=== PATIENT | female | born 1995 | race Caucasian/White ===

== ENCOUNTER 2017-04-17 16:29 | Emergency (ER) | payer OTHER ==
--- NOTE | 2017-04-17 18:22 | DIAGNOSTIC IMAGING REPORT ---
PROCEDURE: CT ABD/PELVIS WITH CONTRAST CLINICAL INDICATION: ABDOMINAL PAIN TECHNIQUE: 100 ml of Isovue 300 were injected intravenously and axial images were obtained of the entire abdomen and pelvis with sagittal and coronal reformations. COMPARISON: Pelvic ultrasound 04/12/[address] of/pelvis 03/10/2016. FINDINGS: ABDOMEN: Lung base are clear. Heart size is normal. Liver, gallbladder, pancreas, spleen, adrenal glands, kidneys and abdominal aorta are normal. Stool throughout the large bowel. PELVIS: Appendix not clearly visualized but no evidence of acute appendicitis. Uterus, adnexa and bladder are normal. No evidence of a pelvic mass, inflammatory changes or free fluid. Bones are unremarkable. IMPRESSION: 1. Obstipation 2. Results discussed with Aleyda Milner. All CT scans at this facility use dose modulation, iterative reconstruction, and/or weight-based dosing when appropriate to reduce radiation dose to as low as reasonably achievable.
--- NOTE | 2017-04-17 18:48 | ED ORDER SUMMARY ---
..... Patient: WILD DE LEON OrderSheet [facility] VisitID: [id number] [place] [address] 22y, F Registration Date/Time: 04/17/2017 ORDER SHEET Weight: 45.3 kg (stated) Allergies: No Known Drug Allergy GENERAL ORDERS: UA-Culture if indicated Urgent (16:42 04/17/2017 JBoardley R.N. per protocol) (Ack 16:46 PWeiler ER Tech1) (16:47 JBoardley R.N.) Urine Urgent (16:42 04/17/2017 JBoardley R.N. per protocol) (Ack 16:46 PWeiler ER Tech1) (16:47 JBoardley R.N.) CT Abd/Pel w Cont (No) (pending) Urgent (17:03 04/17/2017 HBivens A.R.N.P.) (Ack 17:14 PWeiler ER Tech1) (18:04 PWeiler ER Tech1) CBC w Diff Urgent (17:03 04/17/2017 HBivens A.R.N.P.) (17:11 JBoardley R.N.) CMP Urgent (17:03 04/17/2017 HBivens A.R.N.P.) (17:11 JBoardley R.N.) MEDICATION ORDERS: IV FLUIDS: Toradol IV 30 mg (NOW) (17:02 04/17/2017 HBivens A.R.N.P.) (Ack 17:05 JBoardley R.N.) (17:12 JBoardley R.N.) IV Saline Lock (17:03 04/17/2017 HBivens A.R.N.P.) (Ack 17:05 JBoardley R.N.) (17:12 JBoardley R.N.) Dilaudid IV 1 mg (HIGH ALERT MEDICATION, NOW) (17:33 04/17/2017 JBoardley R.N. verbal order read back to HBivens A.R.N.P.) (17:34 JBoardley R.N.) Zofran IV 4 mg (NOW) (17:33 04/17/2017 Saundra R.N. verbal order read back to HBivens A.R.N.P.) (17:34 Saundra R.N.) Dilaudid IV 0.5 mg (HIGH ALERT MEDICATION, NOW) (17:48 04/17/2017 Saundra R.N. verbal order read back to HBivens A.R.N.P.) (Cancelled: Other17:48 Saundra R.N.) ORDER SHEET NOTES: [Electronically signed by Gemini Dodge R.N. (19:01 04/17/2017)] [Electronically signed by Aleyda MilnerNSabrinaPSabrina (22:23 04/17/2017)] [Electronically locked/signed by Gemini Dodge R.N. (19:01 04/17/2017)]
--- NOTE | 2017-04-17 18:48 | ED CLINICAL REPORT ---
Clinical Report - Physicians/Mid Levels [facility] [address] [place] [address] 04/17/2017 16:29 Patient: WILD DE LEON Time Seen: 16:33; initial patient contact, initial documentation, patient care assumed. Arrived- By private vehicle. Historian- patient. HISTORY OF PRESENT ILLNESS Chief Complaint: PELVIC PAIN. This started about 4 days ago and is still present and worsening. It was abrupt in onset and has been constant. At its maximum, severity described as severe. When seen in the E.D., severity described as severe. Modifying factors. Not worsened by anything. Not relieved by anything. It is described as "pain". No radiation. It is described as located in the right pelvis and left pelvis and in the pelvic area. No nausea, loss of appetite, vomiting or diarrhea. No additional abdominal pain. No recent travel. Similar symptoms previously: None. Recent medical care: The patient was seen recently in a clinic. ( went to clinic yesterday, full exam done, dx with pelvic infection, given shot and oral abx & pain meds, pt here today, because pain is worse, doesn't know name of meds, name of infection). REVIEW OF SYSTEMS No constipation, black stools, hematemesis, difficulty with urination or pain with urination. No urinary frequency, abnormal bleeding, fever, chest pain or difficulty breathing. Denies current . The patient has chronically had irregular periods. All systems otherwise negative, except as recorded above. PAST HISTORY See nurses notes. PROBLEMS: Pelvic Pain. Flank Pain. Abdominal Pain. Ovarian Cyst. Immunizations. LNMP - Last Normal Menstrual Period. --16:38 Matheus Cunha R.N. Gastroenteritis [RuleOut]. --16:38 Matheus Cunha R.N. ADDITIONAL SURGERIES: no known surgeries. SOCIAL HISTORY Light tobacco smoker. Occasional alcohol use. History of occasional drug use: marijuana. No recent travel. Is a local resident. FAMILY HISTORY Negative. ADDITIONAL NOTES The nursing notes have been reviewed with agreement regarding the chief complaint, HPI, ROS, PMH and patient medications and allergies. PHYSICAL EXAM Vital Signs: 04/17/2017 16:34 BP: 116/74. HR: 109. RR: 16. O2 saturation: 100%. Temp: 98.1 F. Pain level now: 06/21. Have been reviewed as abnormal and appear to be correct. Blood pressure normal. Tachycardic. Respiratory rate normal. Temperature normal. Oxygen saturation normal. Appearance: Alert. Oriented X3. No acute distress. Eyes: Pupils equal, round and reactive to light. Eyes normal inspection. Neck: Normal inspection. Neck supple. CVS: Normal heart rate and rhythm. Heart sounds normal. Pulses normal. Respiratory: No respiratory distress. Breath sounds normal. Chest nontender. Abdomen: Soft. Tenderness in the right lower quadrant, suprapubic area and left lower quadrant with guarding and rebound tenderness present (moderate tenderness on RLQ with guarding and rebound, mild tenderness suprapubic and LLQ). No Donaldson's, obturator or psoas sign present. Bowel sounds normal. No organomegaly. No mass. Tenderness present. Back: Normal inspection. Skin: Skin warm and dry. Normal skin color. No rash. Normal skin turgor. Extremities: Extremities exhibit normal ROM. No lower extremity edema. Neuro: Oriented X 3. No motor deficit. No sensory deficit. LABS, X-RAYS, AND EKG Abdominal CT: . IMPRESSION: 1. Obstipation 2. Results discussed with Aleyda Milner. All CT scans at this facility use dose modulation, iterative reconstruction, and/or weight-based dosing when appropriate to reduce radiation dose to as low as reasonably achievable. Electronically Final signed by:Saturnino Adair MD 04/17/2017 6:21:42 PM. The study was interpreted by the radiologist and discussed with the radiologist. Interpretation time: 1821. Laboratory Tests: UA-Culture if indicated: (JUAN M: 04/17/2017 16:45) ( MsgRcvd 04/17/2017 17:13) Final results Test Result Flag Units (Reference) URINE COLOR YELLOW URINE APPEARANCE SL CLOUDY URINE GLUCOSE NEGATIVE (NEGATIVE) URINE BILIRUBIN NEGATIVE (NEGATIVE) URINE KETONE NEGATIVE (NEGATIVE) URINE SPECIFIC GRAVITY 1.020 (1.010-1.030) URINE PH 7.0 (5.0-8.0) URINE PROTEIN NEGATIVE (NEGATIVE) URINE UROBILINOGEN 1.0 EU/dL (0.2-1.0) URINE NITRITE NEGATIVE (NEGATIVE) URINE BLOOD NEGATIVE (NEGATIVE) URINE LEUK ESTERASE NEGATIVE (NEGATIVE) URINE RBC 0-1 rbc/hpf (0-1) URINE WBC NONE SEEN wbc/hpf (0-1) URINE EPITHELIAL CELLS 3-5 EPI/hpf (0-5) 3+ AMORPHOUS/HPF1+ MUCUS URINE BACTERIA TRACE (<1+) (NONE SEEN) URINE COMMENT CULT NOT INDICATED URINE CULTURES ARE SET-UP BASED ON THE FOLLOWING CRITERIA:POSITIVE NITRITEPOSITIVE LEUKOCYTE ESTERASEGREATER THAN 10 WHITE BLOOD CELLSMODERATE (2+) OR GREATER BACTERIA Urine: (JUAN M: 04/17/2017 16:45) ( [facility] 04/17/2017 17:11) Final results Test Result Flag Units (Reference) URINE NEGATIVE CBC w Diff: (JUAN M: 04/17/2017 17:10) ( [facility] 04/17/2017 17:22) Final results Test Result Flag Units (Reference) WHITE BLOOD COUNT 7.2 K/uL (4.5-11.5) RED BLOOD COUNT 4.39 M/uL (4.00-5.20) HEMOGLOBIN 13.3 gm/dL (12.0-16.0) HEMATOCRIT 39.5 % (36.0-46.0) MEAN CELL VOLUME 90 fL (80-100) MEAN CORPUSCULAR HGB 30 pg (26-34) MEAN CORPUSCULAR HGB CONC 34 g/dL (31-37) RED CELL DISTRIBUTION WIDTH 12.8 % (11.6-14.8) PLATELET COUNT 259 K/uL (150-400) NEUTROPHIL % 57.8 % (50-75) LYMPH % 32.4 % (25-40) MONO % 8.2 % (3-14) EOSINOPHIL % 1.3 % (0-4) BASOPHIL % 0.3 % (0-2) . PROGRESS AND PROCEDURES Course of Care: old er records reviewed, pt here 04/12/16, for same thing, even though pt stated she never had this before. Patient counseled in person regarding the patient's stable condition, test results and diagnosis. 18:26. Differential Diagnosis: I considered acute appendicitis, mesenteric lymphadenitis, urinary tract infection, cystitis, ovarian cyst, ovarian torsion, , ectopic , pelvic inflammatory disease, pelvic abscess and endometriosis as a possible cause of abdominal pain in this patient. This is a partial list of diagnoses considered. (substance abuse). Above considerations are based on history, physical exam, reassessment, laboratory data and other information. Differential diagnosis was discussed with patient. Disposition: Discharged home in good and improved condition (18:47). Condition: good and stable. CLINICAL IMPRESSION Acute right lower quadrant abdominal pain. INSTRUCTIONS (continue prescription, antibiotics and pain meds, as previously directed, and discussed). Warnings: GENERAL WARNINGS: Return or contact your physician immediately if your condition worsens or changes unexpectedly, if not improving as expected, or if other problems arise. SPECIFICALLY, return if you develop pain in the abdomen or pelvis, fever, the inability to keep fluids down, blood in vomitus, blood in diarrhea, fainting or lightheadedness. Prescription Medications: Miralax: take 1 measuring cupful supplied (1 heaping tablespoon) mixed in 8 ounces liquid daily as needed for constipation. Dispense fourteen (14) ounce bottle. No refill. Substitution is permissible. Follow-up: Follow up with your doctor in about two days even if well. Call for an appointment. Summary of care provided to patient. Understanding of the discharge instructions verbalized by patient. (Electronically signed by Aleyda Milner A.R.N.P. 04/17/2017 22:23)
--- NOTE | 2017-04-17 18:48 | ED ORDER SUMMARY ---
..... Patient: WILD DE LEON OrderSheet [facility] VisitID: [id number] [place] [address] 22y, F Registration Date/Time: 04/17/2017 ORDER SHEET Weight: 45.3 kg (stated) Allergies: No Known Drug Allergy GENERAL ORDERS: UA-Culture if indicated Urgent (16:42 04/17/2017 JBoardley R.N. per protocol) (Ack 16:46 PWeiler ER Tech1) (16:47 JBoardley R.N.) Urine Urgent (16:42 04/17/2017 JBoardley R.N. per protocol) (Ack 16:46 PWeiler ER Tech1) (16:47 JBoardley R.N.) CT Abd/Pel w Cont (No) (pending) Urgent (17:03 04/17/2017 HBivens A.R.N.P.) (Ack 17:14 PWeiler ER Tech1) (18:04 PWeiler ER Tech1) CBC w Diff Urgent (17:03 04/17/2017 HBivens A.R.N.P.) (17:11 JBoardley R.N.) CMP Urgent (17:03 04/17/2017 HBivens A.R.N.P.) (17:11 JBoardley R.N.) MEDICATION ORDERS: IV FLUIDS: Toradol IV 30 mg (NOW) (17:02 04/17/2017 HBivens A.R.N.P.) (Ack 17:05 JBoardley R.N.) (17:12 JBoardley R.N.) IV Saline Lock (17:03 04/17/2017 HBivens A.R.N.P.) (Ack 17:05 JBoardley R.N.) (17:12 JBoardley R.N.) Dilaudid IV 1 mg (HIGH ALERT MEDICATION, NOW) (17:33 04/17/2017 JBoardley R.N. verbal order read back to HBivens A.R.N.P.) (17:34 JBoardley R.N.) Zofran IV 4 mg (NOW) (17:33 04/17/2017 Saundra R.N. verbal order read back to HBivens A.R.N.P.) (17:34 Saundra R.N.) Dilaudid IV 0.5 mg (HIGH ALERT MEDICATION, NOW) (17:48 04/17/2017 Saundra R.N. verbal order read back to HBivens A.R.N.P.) (Cancelled: Other17:48 Saundra R.N.) ORDER SHEET NOTES: [Electronically signed by Gemini Dodge R.N. (19:01 04/17/2017)] [Electronically signed by Aleyda MilnerNSabrinaPSabrina (22:23 04/17/2017)] [Electronically locked/signed by Gemini Dodge R.N. (19:01 04/17/2017)]
--- NOTE | 2017-04-17 18:48 | ED NURSING NOTES ---
Clinical Report - Nurses [place] [address] [place] [address] 04/17/2017 16:29 Patient: WILD DE LEON TRIAGE Triage time 16:34. Acuity: LEVEL 3. Chief Complaint: PELVIC PAIN. 16:36 04/17/17. 16:36 04/17/17. Alert. ( Pt was seen yesterday at Jan. Pt states that she had a pelvic exam and had a "pelvic infection". Pt was given an IM injection and PO abx. Pt is returning because this pelvic pain is worse.). SEPSIS SCREEN: Sepsis Screen. Negative (no infection suspected/documented). --16:40 Matheus Cunha R.N. 16:34 04/17/17. BP: 116/74. HR: 109. RR: 16. O2 saturation: 100% on room air. Temp: 98.1 F (oral). Pain level now: 06/21. --16:40 Matheus Cunha R.N. Weight: 45.3 kg stated. Height/Length: 64 inches Per Patient. BMI: 17.2. --16:34 Matheus Cunha R.N. Medications Abx, started 04/16/2017 (unsure of med, was recently prescribed this). --16:37 Matheus Cunha R.N. Percocet Oral, as needed, started 04/16/2017. --16:37 Matheus Cunha R.N. Medication/allergy information source: the patient. --16:40 Matheus Cunha R.N. Allergies No Known Drug Allergy. --16:36 Matheus Cunha R.N. History Arrived by private vehicle. Historian: patient. Unaccompanied. Primary physician (). 16:36 04/17/17. ( 4 days ago). 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 PAST MEDICAL HX: No history of pelvic inflammatory disease or sexually transmitted disease. Immunizations: up-to-date. Last normal menstrual period unknown. SOCIAL HX: Current every day light tobacco smoker (cigarette)- less than 1/2 a pack per day. Occasional alcohol use. History of occasional drug use: marijuana. No infectious disease exposure. FALL RISK ASSESSMENT: Fall risk assessment completed. No fall risk identified. NUTRITIONAL RISK ASSESSMENT: The nutritional risk assessment revealed no deficiencies. FUNCTIONAL ASSESSMENT: Functional assessment: no impairments noted. LEARNING NEEDS ASSESSMENT: The learning needs assessment revealed no barriers. SKIN INTEGRITY ASSESSMENT: Skin integrity risk assessment completed. No skin integrity risk identified. --16:40 Matheus Cunha R.N. 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 --16:48 Matheus Cunha R.N. PROBLEMS: Pelvic Pain. Flank Pain. Abdominal Pain. Ovarian Cyst. Immunizations. LNMP - Last Normal Menstrual Period. --16:38 Matheus Cunha R.N. Gastroenteritis [RuleOut]. --16:38 Matheus Cunha R.N. ADDITIONAL SURGERIES: no known surgeries. Assessment 16:36 04/17/17. --16:40 Matheus Cunha R.N. Interventions 16:36 04/17/17. 16:36 04/17/17. ID and allergy band on patient. To treatment room. --16:40 Matheus Cunha R.N. PHYSICAL ASSESSMENT 16:38 04/17/17. Ambulatory to room. GENERAL / NEURO / PSYCH: Alert. Oriented X 4. CVS: Capillary refill less than 2 seconds. GI / : Abdominal tenderness in the lower abdomen. SKIN: Skin is warm and dry. --16:38 Matheus Cunha R.N. NURSING PROGRESS NOTES 16:39 04/17/17. The plan of care for this patient has been created. Patient gowned. Head of bed elevated. Reassurance given. Call light placed in reach. Side rails up x 2. Bed placed in lowest position. Brakes of bed on. --16:39 Matheus Cunha R.N. 16:39 04/17/17. Patient ready for evaluation- chart flagged and notification provided. --16:39 Matheus Cunha R.N. 17:12 04/17/2017 Site #1 started via IV in the right antecubital space with an 20g angiocath, with aseptic technique and good blood return; one attempt. Blood drawn: rainbow set. Labeled in the presence of the patient and sent to the lab. Saline lock flushed with 10 mL saline. --17:12 Matheus Cunha R.N. 17:12 04/17/2017 Toradol IVP 30 mg given over 2 minute(s) via site #1. Allergies verified and confirmed 5 rights. IV patency established. IV site checked: no pain, redness, or swelling. IV flushed thoroughly pre- and post-medication administration. IVP given by RN. --17:12 Matheus Cunha R.N. 17:34 04/17/2017 Dilaudid (HYDROmorphone HCl PF) IVP 0.5 mg given over 2 minute(s) via site #1. Allergies verified, confirmed 5 rights and sedative warning given to the patient. IV patency established. IV site checked: no pain, redness, or swelling. IV flushed thoroughly pre- and post-medication administration. IVP given by RN. --17:34 Matheus Cunha R.N. 17:34 04/17/2017 Zofran (Ondansetron HCl) IVP 4 mg given over 2 minute(s) via site #1. Allergies verified and confirmed 5 rights. IV patency established. IV site checked: no pain, redness, or swelling. IV flushed thoroughly pre- and post-medication administration. IVP given by RN. --17:34 Matheus Cunha R.N. 17:48 04/17/2017 Dilaudid (HYDROmorphone HCl PF) IVP 0.5 mg given over 2 minute(s) via site #1. Allergies verified, confirmed 5 rights and sedative warning given to the patient. IV patency established. IV site checked: no pain, redness, or swelling. IV flushed thoroughly pre- and post-medication administration. IVP given by RN. --17:48 Matheus Cunha R.N. 17:49 04/17/17. Pulse oximeter placed on patient; monitor alarms on. --17:49 Matheus Cunha R.N. 17:50 04/17/17. --17:50 Matheus Cunha R.N. 17:49 04/17/17. BP: 111/78. HR: 93. RR: 18. O2 saturation: 99% on room air. Temp: 98.3 F (oral). Pain level now: 07/22. --17:50 Matheus Cunha R.N. 17:54 04/17/17. Patient transported to CT by stretcher with tech. --17:54 Matheus Cunha R.N. 18:04 04/17/17. Patient returned from CT by stretcher with tech. --18:04 Matheus Cunha R.N. DISPOSITION / DISCHARGE 18:33 04/17/2017 Site #1 removed upon discharge. Catheter intact. Bandage applied. --18:33 Matheus Cunha R.N. 18:34 04/17/17. Condition at departure: improved. The goals identified in the patient's plan of care were met. No learning barriers present. Discharge instructions provided and reviewed with the patient. Reviewed warnings. Reviewed medication(s). Treatments reviewed. Patient verbalized understanding. Written instructions provided in Slovak. The patient was discharged by the physician. She was discharged home. She left the Emergency Department ambulatory and via private vehicle. FALL RISK ASSESSMENT: Fall risk assessment completed. No fall risk identified. --18:34 Matheus Cunha R.N. 18:32 04/17/17. BP: 109/77. HR: 89. RR: 18. O2 saturation: 99% on room air. Temp: 98.2 F (oral). Pain level now: 02/19. --18:34 Matheus Cunha R.N. Departure time: 1900 PM. --19:01 Gemini Dodge R.N. Locked/Released at 04/17/2017 19:01 by Gemini Dodge R.N.
--- NOTE | 2017-04-17 18:48 | ED NURSING NOTES ---
Clinical Report - Nurses [place] [address] [place] [address] 04/17/2017 16:29 Patient: WILD DE LEON TRIAGE Triage time 16:34. Acuity: LEVEL 3. Chief Complaint: PELVIC PAIN. 16:36 04/17/17. 16:36 04/17/17. Alert. ( Pt was seen yesterday at Jan. Pt states that she had a pelvic exam and had a "pelvic infection". Pt was given an IM injection and PO abx. Pt is returning because this pelvic pain is worse.). SEPSIS SCREEN: Sepsis Screen. Negative (no infection suspected/documented). --16:40 Matheus Cunha R.N. 16:34 04/17/17. BP: 116/74. HR: 109. RR: 16. O2 saturation: 100% on room air. Temp: 98.1 F (oral). Pain level now: 06/21. --16:40 Matheus Cunha R.N. Weight: 45.3 kg stated. Height/Length: 64 inches Per Patient. BMI: 17.2. --16:34 Matheus Cunha R.N. Medications Abx, started 04/16/2017 (unsure of med, was recently prescribed this). --16:37 Matheus Cunha R.N. Percocet Oral, as needed, started 04/16/2017. --16:37 Matheus Cunah R.N. Medication/allergy information source: the patient. --16:40 Matheus Cunha R.N. Allergies No Known Drug Allergy. --16:36 Matheus Cunha R.N. History Arrived by private vehicle. Historian: patient. Unaccompanied. Primary physician (). 16:36 04/17/17. ( 4 days ago). 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 PAST MEDICAL HX: No history of pelvic inflammatory disease or sexually transmitted disease. Immunizations: up-to-date. Last normal menstrual period unknown. SOCIAL HX: Current every day light tobacco smoker (cigarette)- less than 1/2 a pack per day. Occasional alcohol use. History of occasional drug use: marijuana. No infectious disease exposure. FALL RISK ASSESSMENT: Fall risk assessment completed. No fall risk identified. NUTRITIONAL RISK ASSESSMENT: The nutritional risk assessment revealed no deficiencies. FUNCTIONAL ASSESSMENT: Functional assessment: no impairments noted. LEARNING NEEDS ASSESSMENT: The learning needs assessment revealed no barriers. SKIN INTEGRITY ASSESSMENT: Skin integrity risk assessment completed. No skin integrity risk identified. --16:40 Matheus Cunha R.N. 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 --16:48 Matheus Cunha R.N. PROBLEMS: Pelvic Pain. Flank Pain. Abdominal Pain. Ovarian Cyst. Immunizations. LNMP - Last Normal Menstrual Period. --16:38 Matheus Cunha R.N. Gastroenteritis [RuleOut]. --16:38 Matheus Cunha R.N. ADDITIONAL SURGERIES: no known surgeries. Assessment 16:36 04/17/17. --16:40 Matheus Cunha R.N. Interventions 16:36 04/17/17. 16:36 04/17/17. ID and allergy band on patient. To treatment room. --16:40 Matheus Cunha R.N. PHYSICAL ASSESSMENT 16:38 04/17/17. Ambulatory to room. GENERAL / NEURO / PSYCH: Alert. Oriented X 4. CVS: Capillary refill less than 2 seconds. GI / : Abdominal tenderness in the lower abdomen. SKIN: Skin is warm and dry. --16:38 Matheus Cunha R.N. NURSING PROGRESS NOTES 16:39 04/17/17. The plan of care for this patient has been created. Patient gowned. Head of bed elevated. Reassurance given. Call light placed in reach. Side rails up x 2. Bed placed in lowest position. Brakes of bed on. --16:39 Matheus Cunha R.N. 16:39 04/17/17. Patient ready for evaluation- chart flagged and notification provided. --16:39 Matheus Cunha R.N. 17:12 04/17/2017 Site #1 started via IV in the right antecubital space with an 20g angiocath, with aseptic technique and good blood return; one attempt. Blood drawn: rainbow set. Labeled in the presence of the patient and sent to the lab. Saline lock flushed with 10 mL saline. --17:12 Matheus Cunha R.N. 17:12 04/17/2017 Toradol IVP 30 mg given over 2 minute(s) via site #1. Allergies verified and confirmed 5 rights. IV patency established. IV site checked: no pain, redness, or swelling. IV flushed thoroughly pre- and post-medication administration. IVP given by RN. --17:12 Matheus Cunha R.N. 17:34 04/17/2017 Dilaudid (HYDROmorphone HCl PF) IVP 0.5 mg given over 2 minute(s) via site #1. Allergies verified, confirmed 5 rights and sedative warning given to the patient. IV patency established. IV site checked: no pain, redness, or swelling. IV flushed thoroughly pre- and post-medication administration. IVP given by RN. --17:34 Matheus Cunha R.N. 17:34 04/17/2017 Zofran (Ondansetron HCl) IVP 4 mg given over 2 minute(s) via site #1. Allergies verified and confirmed 5 rights. IV patency established. IV site checked: no pain, redness, or swelling. IV flushed thoroughly pre- and post-medication administration. IVP given by RN. --17:34 Matheus Cunha R.N. 17:48 04/17/2017 Dilaudid (HYDROmorphone HCl PF) IVP 0.5 mg given over 2 minute(s) via site #1. Allergies verified, confirmed 5 rights and sedative warning given to the patient. IV patency established. IV site checked: no pain, redness, or swelling. IV flushed thoroughly pre- and post-medication administration. IVP given by RN. --17:48 Matheus Cunha R.N. 17:49 04/17/17. Pulse oximeter placed on patient; monitor alarms on. --17:49 Matheus Cunha R.N. 17:50 04/17/17. --17:50 Matheus Cunha R.N. 17:49 04/17/17. BP: 111/78. HR: 93. RR: 18. O2 saturation: 99% on room air. Temp: 98.3 F (oral). Pain level now: 07/22. --17:50 Matheus Cunha R.N. 17:54 04/17/17. Patient transported to CT by stretcher with tech. --17:54 Mtaheus Cunha R.N. 18:04 04/17/17. Patient returned from CT by stretcher with tech. --18:04 Matheus Cunha R.N. DISPOSITION / DISCHARGE 18:33 04/17/2017 Site #1 removed upon discharge. Catheter intact. Bandage applied. --18:33 Matheus Cunha R.N. 18:34 04/17/17. Condition at departure: improved. The goals identified in the patient's plan of care were met. No learning barriers present. Discharge instructions provided and reviewed with the patient. Reviewed warnings. Reviewed medication(s). Treatments reviewed. Patient verbalized understanding. Written instructions provided in [place]. The patient was discharged by the physician. She was discharged home. She left the Emergency Department ambulatory and via private vehicle. FALL RISK ASSESSMENT: Fall risk assessment completed. No fall risk identified. --18:34 Matheus Cunha R.N. 18:32 04/17/17. BP: 109/77. HR: 89. RR: 18. O2 saturation: 99% on room air. Temp: 98.2 F (oral). Pain level now: 02/19. --18:34 Matheus Cunha R.N. Departure time: 1900 PM. --19:01 Gemini Dodge R.N. Locked/Released at 04/17/2017 19:01 by Gemini Dodge R.N.
--- NOTE | 2017-04-17 22:23 | ED MAR SUMMARY ---
..... Medication Administration Record [facility] [address] [place] [address] Patient: WILD DE LEON Visit ID: [id number] 22y, F Weight: 45.3 kg Height/Length: 64 in BMI: 17.2 ALLERGIES: No Known Drug Allergy Given 17:12 04/17/2017 Matheus Cunha R.N. Medication Administered: TORADOL [IVP], Dose: 30 mg IVP over 2 minute(s), Site: #1 right AC. Medication Ordered: Toradol IV 30 mg (NOW). Given 17:34 04/17/2017 Matheus Cunha R.N. Medication Administered: DILAUDID [IVP] (HYDROMORPHONE HCL PF), Dose: 0.5 mg IVP over 2 minute(s), Site: #1 right AC. Medication Ordered: Dilaudid IV 1 mg (HIGH ALERT MEDICATION, NOW). Given 17:34 04/17/2017 Matheus Cunha R.N. Medication Administered: ZOFRAN [IVP] (ONDANSETRON HCL), Dose: 4 mg IVP over 2 minute(s), Site: #1 right AC. Medication Ordered: Zofran IV 4 mg (NOW). Given 17:48 04/17/2017 Matheus Cunha R.N. Medication Administered: DILAUDID [IVP] (HYDROMORPHONE HCL PF), Dose: 0.5 mg IVP over 2 minute(s), Site: #1 right AC. Medication Ordered: Dilaudid IV 1 mg (HIGH ALERT MEDICATION, NOW).
--- NOTE | 2017-04-17 22:23 | ED DISCHARGE INSTRUCTIONS ---
Patient: WILD DE LEON General Instructions [facility] VisitID: [id number] [place] [address] 22y, F Registration Date/Time: 04/17/2017 Acute right lower quadrant abdominal pain. INSTRUCTIONS (continue prescription, antibiotics and pain meds, as previously directed, and discussed). Warnings: GENERAL WARNINGS: Return or contact your physician immediately if your condition worsens or changes unexpectedly, if not improving as expected, or if other problems arise. SPECIFICALLY, return if you develop pain in the abdomen or pelvis, fever, the inability to keep fluids down, blood in vomitus, blood in diarrhea, fainting or lightheadedness. Prescription Medications: Miralax: take 1 measuring cupful supplied (1 heaping tablespoon) mixed in 8 ounces liquid daily as needed for constipation. Dispense fourteen (14) ounce bottle. No refill. Substitution is permissible. Follow-up: Follow up with your doctor in about two days even if well. Call for an appointment. Summary of care provided to patient. Understanding of the discharge instructions verbalized by patient. ADDITIONAL INFORMATION Abdominal Pain, Unknown Cause (Female) The exact cause of your abdominal (stomach) pain is not certain. This does not mean that this is something to worry about, or the right tests were not done. Everyone likes to know the exact cause of the problem, but sometimes with abdominal pain, there is no clear-cut cause, and this could be a good thing. The good news is that your symptoms can be treated, and you will feel better. Your condition does not seem serious now; however, sometimes the signs of a serious problem may take more time to appear. For this reason,it is important for you to watch for any new symptoms, problems,or worsening of your condition. Over the next few days, the abdominal pain may come and go, or be continuous. Other common symptoms can include nausea and vomiting. Sometimes it can be difficult to tell if you feel nauseous, you may just feel bad and not associate that feeling with nausea. Constipation, diarrhea, and a fever may go along with the pain. The pain may continue even if treated correctly over the following days. Depending on how things go, sometimes the cause can become clear and may require further or different treatment. Additional evaluations, medications, or tests may be needed. Home care Your health care provider may prescribe medications for pain, symptoms, or an infection. Follow the health care provider's instructions for taking these medications. General care Rest until your next exam. No strenuous activities. Try to find positions that ease discomfort. A small pillow placed on the abdomen may help relieve pain. Something warm on your abdomen (such as a heating pad) may help, but be careful not to burn yourself. Diet Do not force yourself to eat, especially if having cramps, vomiting, or diarrhea. Water is important so you do not get dehydrated. Soup may also be good. Sports drinks may also help, especially if they are not too acidic. Make sure you don't drink sugary drinks as this can make things worse. Take liquids in small amounts. Do not guzzle them. Caffeine sometimes makes the pain and cramping worse. Avoid dairy products if you have vomiting or diarrhea. Don't eat large amounts at a time. Wait a few minutes between bites. Eat a diet low in fiber (called a low-residue diet). Foods allowed include refined breads, white rice, fruit and vegetable juices without pulp, tender meats. These foods will pass more easily through the intestine. Avoid whole-grain foods, whole fruits and vegetables, meats, seeds and nuts, fried or fatty foods, dairy, alcohol and spicy foods until your symptoms go away. Follow-up care Follow up with your health care provider as instructed, or if your pain does not begin to improve in the next 24 hours. When to seek medical care Seek prompt medical care if any of the following occur: Pain gets worse or moves to the right lower abdomen New or worsening vomiting or diarrhea Swelling of the abdomen Unable to pass stool for more than three days Fever of 100.4F (38C) or higher, or as directed by your healthcare provider. Blood in vomit or bowel movements (dark red or black color) Jaundice (yellow color of eyes and skin) Weakness, dizziness Chest, arm, back, neck or jaw pain Unexpected vaginal bleeding or missed period Call 911 Call emergency services if any of the following occur: Trouble breathing Confusion Fainting or loss of consciousness Rapid heart rate Seizure Abdominal Pain,Possible Appendicitis [Repeat Exam, Female] Based on your visit today, the exact cause of your abdominal (stomach) pain is not certain. However, you do have some of the early signs of APPENDICITIS. Early in an appendix infection the symptoms can be similar to a simple "stomach ache" or "stomach flu". Therefore, the diagnosis can be hard to make. Since an appendix infection is a serious condition, it is important to know if this is the cause of your symptoms. WAITING for more time to pass and repeating the exam is the best way to find out whether you have appendicitis. Within the next 12-24 hours the cause of your stomach pain should become clear. It is important for you to watch for any new symptoms or worsening of your condition. (See below). Home Care: Rest until your next exam. No strenuous activities. Eat a diet low in fiber (called a low-residue diet). Foods allowed include refined breads, white rice, fruit and vegetable juices without pulp, tender meats. These foods will pass more easily through the intestine. Avoid whole-grain foods, whole fruits and vegetables, meats, seeds and nuts, fried or fatty foods, dairy, alcohol and spicy foods until your symptoms go away. In some cases, you may be asked not to eat or drink anything until you are re-examined. Return for another exam exactly as directed. Follow Up with your doctor or this facility as directed. Get Prompt Medical Attention if any of the following occur: Pain gets worse or moves to the right lower abdomen New or worsening vomiting or diarrhea Swelling of the abdomen Unable to pass stool for more than three days Fever of 100.4F (38C) or higher, or as directed by your healthcare provider Blood in vomit or bowel movements (dark red or black color) Weakness, dizziness or fainting Unexpected vaginal bleeding You have been given the following additional information: Abdominal Pain, Unknown Cause, (Female) Abdominal Pain, Possible Appendicitis (Female) (Electronically signed by Aleyda Milner A.R.N.P. 04/17/2017 22:23)
--- NOTE | 2017-04-17 22:23 | ED MAR SUMMARY ---
..... Medication Administration Record [facility] [address] [place] [address] Patient: WILD DE LEON Visit ID: [id number] 22y, F Weight: 45.3 kg Height/Length: 64 in BMI: 17.2 ALLERGIES: No Known Drug Allergy Given 17:12 04/17/2017 Matheus Cunha R.N. Medication Administered: TORADOL [IVP], Dose: 30 mg IVP over 2 minute(s), Site: #1 right AC. Medication Ordered: Toradol IV 30 mg (NOW). Given 17:34 04/17/2017 Matheus Cunha R.N. Medication Administered: DILAUDID [IVP] (HYDROMORPHONE HCL PF), Dose: 0.5 mg IVP over 2 minute(s), Site: #1 right AC. Medication Ordered: Dilaudid IV 1 mg (HIGH ALERT MEDICATION, NOW). Given 17:34 04/17/2017 Matheus Cunha R.N. Medication Administered: ZOFRAN [IVP] (ONDANSETRON HCL), Dose: 4 mg IVP over 2 minute(s), Site: #1 right AC. Medication Ordered: Zofran IV 4 mg (NOW). Given 17:48 04/17/2017 Matheus Cunha R.N. Medication Administered: DILAUDID [IVP] (HYDROMORPHONE HCL PF), Dose: 0.5 mg IVP over 2 minute(s), Site: #1 right AC. Medication Ordered: Dilaudid IV 1 mg (HIGH ALERT MEDICATION, NOW).
--- NOTE | 2017-04-17 22:23 | ED MED RECONCILIATION SUMMARY ---
Patient: WILD DE LEON Medication Reconciliation Report [facility] VisitID: [id number] [address] [place] [address] 22y, F Registration Date/Time: 04/17/2017 Weight: 45.3 kg Height/Length: 64 in. BMI: 17.2 ALLERGIES: No Known Drug Allergy The patient's Home Medications are listed below: THE FOLLOWING MEDICATIONS NEED TO BE RECONCILED: Abx, unsure of med, was recently prescribed this Percocet Oral The source(s) of the original Home Medication information: patient The following Medications were given to the patient in the Emergency Department: Toradol [IVP] IVP 30 mg, administered: 04/17/2017 5:12:00 PM Dilaudid [IVP] IVP 0.5 mg, administered: 04/17/2017 5:34:00 PM Zofran [IVP] IVP 4 mg, administered: 04/17/2017 5:34:00 PM Dilaudid [IVP] IVP 0.5 mg, administered: 04/17/2017 5:48:00 PM The following Medications were prescribed to the patient: Miralax: take 1 measuring cupful supplied (1 heaping tablespoon) mixed in 8 ounces liquid daily as needed for constipation. Dispense fourteen (14) ounce bottle. No refill. Substitution is permissible. -- Aleyda Milner A.R.N.P.
--- NOTE | 2017-04-17 22:23 | ED MED RECONCILIATION SUMMARY ---
Patient: WILD DE LEON Medication Reconciliation Report [facility] VisitID: [id number] [address] [place] [address] 22y, F Registration Date/Time: 04/17/2017 Weight: 45.3 kg Height/Length: 64 in. BMI: 17.2 ALLERGIES: No Known Drug Allergy The patient's Home Medications are listed below: THE FOLLOWING MEDICATIONS NEED TO BE RECONCILED: Abx, unsure of med, was recently prescribed this Percocet Oral The source(s) of the original Home Medication information: patient The following Medications were given to the patient in the Emergency Department: Toradol [IVP] IVP 30 mg, administered: 04/17/2017 5:12:00 PM Dilaudid [IVP] IVP 0.5 mg, administered: 04/17/2017 5:34:00 PM Zofran [IVP] IVP 4 mg, administered: 04/17/2017 5:34:00 PM Dilaudid [IVP] IVP 0.5 mg, administered: 04/17/2017 5:48:00 PM The following Medications were prescribed to the patient: Miralax: take 1 measuring cupful supplied (1 heaping tablespoon) mixed in 8 ounces liquid daily as needed for constipation. Dispense fourteen (14) ounce bottle. No refill. Substitution is permissible. -- Aleyda Milner A.R.N.P.
== END 2017-04-17 19:00 | disposition home or self-care (01) ==
LOC: ED SRH 16:29
DX: R10.31 Right lower quadrant pain (principal); K59.00 Constipation, unspecified; F17.210 Nicotine dependence, cigarettes, uncomplicated
CPT/HCPCS: 90004; 90100; 93070; 95059